=== PATIENT | female | born 1995 | race Caucasian/White ===

== ENCOUNTER 2017-11-15 01:10 | Emergency (ER) | payer OTHER ==
[2017-11-15] MEDS ORDERED: ONDANSETRON 4 MG/2 ML VIAL ONE (01:36)
[2017-11-15] MEDS ORDERED: NS 1,000 ML IV ONE (01:39)
[2017-11-15] MEDS ORDERED: ONDANSETRON 4 MG/2 ML VIAL IVP ONE (01:39)
--- NOTE | 2017-11-15 01:41 | EDPHY ---
H & P Stated Complaint: DX TODAY C-DIFF/SYMPTOMS X 1 WK DIARRHEA, LIGHT HEAD Time Seen by Provider: 11/15/17 01:33 HPI/ROS: Chief Complaint: Diarrhea, lightheaded HPI: 22-year-old woman whose had 1/2 weeks of diarrhea after traveling to [place]. She was seen at [facility] yesterday and had a stool test positive for C difficile colitis. She was started on vancomycin. She was having diarrhea about every 30 min last week. Is now down to about every hour. Mild crampy abdominal pain. Some mild back pain as well. Some nausea but no vomiting. No fevers or chills. She is getting lightheaded but no fainting or falls. ROS: 10 point Review of Systems is negative except as noted in the HPI. PMH: Denies Social History: No smoking, no alcohol, no recreational drug use Family History: non-contributory Physical Exam: Gen: Awake, Alert, No Distress HEENT: Nose: no rhinorrhea Eyes: PERRLA, EOMI Mouth: Moist mucosa Neck: Supple, no JVD Chest: nontender, lungs clear to auscultation Heart: S1, S2 normal, no murmur Abd: Soft, non-tender, no guarding Back: no CVA tenderness, no midline tenderness Ext: no edema, non-tender Skin: no rash Neuro: CN II-XII intact, Sensation grossly intact, Strength 5/5 in bilateral upper and lower extremities - Personal History LMP (Females 10-55): 8-14 Days Ago Current Tetanus Diphtheria and Acellular Pertussis (TDAP): Yes - Medical/Surgical History Hx Asthma: Yes Hx Chronic Respiratory Disease: No Hx Diabetes: No Hx Cardiac Disease: No Hx Renal Disease: No Hx Cirrhosis: No Hx Alcoholism: No Hx HIV/AIDS: No Hx Splenectomy or Spleen Trauma: No Other PMH: C-DIFF, REIMPLANTATION URETER - Social History Smoking Status: Never smoked Constitutional: Initial Vital Signs Temperature (C) 37.2 C 11/15/17 01:19 Heart Rate 69 11/15/17 01:19 Respiratory Rate 16 11/15/17 01:19 Blood Pressure 123/83 H 11/15/17 01:19 O2 Sat (%) 96 11/15/17 01:19 O2 Delivery Mode Room Air Allergies/Adverse Reactions: No Known Allergies Allergy (Unverified 11/15/17 01:17) Home Medications: Medication Instructions Recorded Albuterol 11/15/17 Control 11/15/17 Zofran 11/15/17 Zoloft 25mg (*) 11/15/17 Medical Decision Making ED Course/Re-evaluation: Patient is improved after 2 L of fluid and Zofran. She has no more nausea. She is tolerating p.o.. Blood work is unremarkable. Normal renal function. No white count. Abdomen is soft and benign. Will discharge with follow up with [facility] as an outpatient. She will continue oral antibiotics. - Data Points Laboratory Results: Laboratory Results 11/15/17 01:40 11/15/17 01:40 11/15/17 11/15/17 01:40 01:40 WBC 7.96 10^3/uL 10^3/uL (3.80-9.50) RBC 4.61 10^6/uL 10^6/uL (4.18-5.33) Hgb 14.1 g/dL g/dL (12.6-16.3) Hct 40.7 % % (38.0-47.0) MCV 88.3 fL fL (81.5-99.8) MCH 30.6 pg pg (27.9-34.1) MCHC 34.6 g/dL g/dL (32.4-36.7) RDW 12.0 % % (11.5-15.2) Plt Count 225 10^3/uL 10^3/uL (150-400) MPV 11.4 fL fL (8.7-11.7) Neut % (Auto) 43.5 % % (39.3-74.2) Lymph % (Auto) 46.4 % H % (15.0-45.0) [place] % (Auto) 6.7 % % (4.5-13.0) Eos % (Auto) 2.5 % % (0.6-7.6) Baso % (Auto) 0.6 % % (0.3-1.7) Nucleat RBC Rel Count 0.0 % % (0.0-0.2) Absolute Neuts (auto) 3.47 10^3/uL 10^3/uL (1.70-6.50) Absolute Lymphs (auto) 3.69 10^3/uL H 10^3/uL (1.00-3.00) Absolute Monos (auto) 0.53 10^3/uL 10^3/uL (0.30-0.80) Absolute Eos (auto) 0.20 10^3/uL 10^3/uL (0.03-0.40) Absolute Basos (auto) 0.05 10^3/uL 10^3/uL (0.02-0.10) Absolute Nucleated RBC 0.00 10^3/uL 10^3/uL (0-0.01) Immature Gran % 0.3 % % (0.0-1.1) Immature Gran # 0.02 10^3/uL 10^3/uL (0.00-0.10) Sodium 144 mEq/L mEq/L (135-145) Potassium 3.7 mEq/L mEq/L (3.5-5.2) Chloride 107 mEq/L mEq/L (97-110) Carbon Dioxide 25 mEq/l mEq/l (22-31) Anion Gap 12 mEq/L mEq/L (8-16) BUN 6 mg/dL L mg/dL (7-23) Creatinine 0.6 mg/dL mg/dL (0.6-1.0) Estimated GFR > 60 Glucose 80 mg/dL mg/dL (70-100) Calcium 9.3 mg/dL mg/dL (8.5-10.4) Medications Given: Discontinued Medications Sodium Chloride (Ns) 1,000 mls @ 6,000 mls/hr IV ONCE ONE Stop: 11/15/17 01:48 Last Admin: 11/15/17 01:39 Dose: 1,000 mls Ondansetron HCl (Zofran) 4 mg IVP EDNOW ONE Stop: 11/15/17 01:40 Last Admin: 11/15/17 01:40 Dose: 4 mg Departure - Departure Disposition: Home, Routine, Self-Care Clinical Impression: C. difficile colitis Condition: Good Instructions: Clostridium Difficile Infection (ED) Additional Instructions: Please take her full course of antibiotics. Make sure to drink plenty of fluids. Follow up with [facility] in 3-4 days for further evaluation. Return to the emergency department if you are unable to tolerate fluids, uncontrolled vomiting, uncontrolled pain, or any other concerns. Referrals: [facility] [Clinic] - As per Instructions
[2017-11-15 01:56] LABS: PLATELET COUNT 225 10^3/uL (150-400)
[2017-11-15 03:18] VITALS: BP 121/43
== END 2017-11-15 03:18 | disposition home or self-care (01) ==
DX: A04.72 Enterocolitis due to Clostridium difficile, not specified as recurrent (principal); J45.909 Unspecified asthma, uncomplicated
CPT/HCPCS: 96374; J2405